=== PATIENT | male | born 1990 | race Caucasian/White ===

== ENCOUNTER 2017-09-24 16:27 | Emergency (ER) | payer BC ==
[~2017-09-24] VITALS: Ht 182.9 cm; Wt 111.8 kg
[~2017-09-24 16:27] MED LIST: IMT100 PO
[2017-09-24 16:35] VITALS: TEMP 36.4; Ht 182.9 cm; Wt 111.8 kg
[2017-09-24] MEDS ORDERED: ACETAMINOPHEN IV 100 ML IV STA (17:54)
[2017-09-24] MEDS ORDERED: SODIUM CHLORIDE 0.9% 1000ML 1,000 ML IV STA (17:54)
[2017-09-24] MEDS ORDERED: ONDANSETRON INJ 2 MG/ML 2 ML VIAL IV STA (17:54)
[2017-09-24] MEDS ORDERED: OPTIRAY 320 IV PRN (18:15)
[2017-09-24] MEDS ORDERED: ACET-1311 PO (18:18)
--- NOTE | 2017-09-24 18:33 | EMERGENCY ROOM VISIT NOTE ---
History First contact with patient: 17:08 Chief Complaint: ILLNESS Stated Complaint: STOMACH PAINS, VOMITING, LOOSE STOOL History of Present Illness The patient is a 27 year old male who presents to the Emergency Room with complaints of epigastric pain, nausea/vomiting, and diarrhea that started this morning. Patient states he had some mild epigastric pain last night when he went to bed, but thought it was just a stomach ache. This morning he had severe epigastric pain, followed by several episodes of vomiting and watery stools. He denies any blood in his stool or vomit. He also reports history of hemorrhoids. He states his abdominal pain is now diffuse in the whole abdomen, crampy and occasionally sharp, constant, 8/10. Patient reports a history of a stomach ulcer approximately 1.5 years ago, he was treated with antibiotics for this, and then developed a C. difficile infection. He states since treatment for all that he has not had any ongoing stomach issues, does not take any daily medications for management. Patient states that he has been able to keep some water down, but it seems to go right through him as diarrhea. He has not had anything to eat today. He denies any headaches, neck pain or stiffness, chest pain, shortness of breath, palpitations, dizziness or syncope, back pain, urinary symptoms, rash. Review of Systems A complete 10 point review of systems was reviewed with the patient with pertinent positives and negatives as per history of present illness. All else were negative. Past Medical/Surgical History Medical Problems: (1) GI bleed (2) History of frequent headaches Family History FHx: hypertension FHx: kidney disease Heart disease Social History Smoking Status: Never Smoker Alcohol Use: none Drug Use: none Marital Status: in relationship Housing Status: lives with family, lives with significant other Current/Historical Medications Scheduled Acetaminophen (Tylenol), 650 MG PO PRN/UD Scheduled PRN Sumatriptan Succinate (Imitrex), 100 MG PO UD PRN for Migraine Allergies Reviewed in chart. Physical Exam Vital Signs Date Time Temp Pulse Resp B/P (MAP) Pulse Ox O2 Delivery O2 Flow Rate FiO2 09/24/17 22:39 84 16 110/78 99 09/24/17 21:48 74 16 103/78 09/24/17 20:29 91 16 120/68 99 Room Air 09/24/17 16:35 36.4 92 18 131/86 97 Room Air Physical Exam CONSTITUTIONAL: No acute distress, but does appear uncomfortable and in pain. Mildly dehydrated. Alert and oriented X 4 with normal affect. HEENT: Normocephalic, atraumatic. Pupils equal, round and reactive to light, EOMI. TMs normal. Pharynx normal. Tacky mucous membranes. NECK: Supple, full active range of motion without discomfort. RESPIRATORY: Clear to auscultation bilaterally with no wheezing, crackles, rhonchi or stridor. Equal expansion bilaterally. CARDIOVASCULAR: Regular rate and rhythm with no murmurs, rubs or gallops. Normal peripheral perfusion. No edema. GASTROINTESTINAL: Diffuse tenderness throughout the abdomen to palpation, no palpable masses, no HSM, no rebound or guarding. Soft, nondistended, obese. Hyperactive bowel sounds present in all quadrants. MUSCULOSKELETAL: Full range of motion of all joints without discomfort. INTEGUMENTARY: No rash or other significant dermatologic conditions noted. NEUROLOGIC: Cranial nerves II-XII grossly intact. No focal neurologic deficits noted. Medical Decision & Procedures ER Provider Diagnostic Interpretation: ABD/PELVIS IV CONTRAST ONLY CLINICAL HISTORY: 27 years-old Male presenting with eval SBO, colitis, diverticulitis, appe. TECHNIQUE: Multidetector CT of the abdomen and pelvis was performed after the administration of intravenous contrast. IV contrast: 116 mL of Optiray 320. A dose lowering technique was used consistent with the principles of ALARA (as low as reasonably achievable). COMPARISON: 03/28/2016. CT DOSE (mGy.cm): The estimated cumulative dose is 997.52 mGy.cm. FINDINGS: [employer] topogram: Unremarkable. Lung bases: Minimal dependent changes likely atelectasis. Normal heart size. No pericardial or pleural effusion. Bilateral gynecomastia. Liver: Congenital hypoplasia of the medial segments of the left hepatic lobe. No focal lesion. Patent hepatic vasculature. Biliary: No intrahepatic or extrahepatic biliary ductal dilatation. Normal gallbladder. Pancreas: Normal. Spleen: Normal. Adrenal glands: Normal. Kidneys and ureters: Normal. No hydronephrosis. Bladder: Normal. Pelvic organs: Prostate and seminal vesicles normal. Bowel: Normal appendix. No bowel obstruction. Peritoneal cavity: No free fluid or intraperitoneal gas. Mild infiltration of the small bowel mesentery with associated prominent subcentimeter lymph nodes, suggesting mesenteric panniculitis. This appearance is not significantly changed since the prior exam. Lymph nodes: Prominent mesenteric lymph nodes associated with mild mesenteric infiltration. No pathologically enlarged lymph nodes by CT size criteria. Vasculature: Aorta and IVC patent and normal in caliber. Abdominal wall: Normal. Musculoskeletal: Normal. IMPRESSION: 1. No acute intra-abdominal pathology. Laboratory Results 09/24/17 18:30 Red Blood Count 5.32, Mean Corpuscular Volume 85.5, Mean Corpuscular Hemoglobin 29.3, Mean Corpuscular Hemoglobin Concent 34.3, Mean Platelet Volume 11.1, Neutrophils (%) (Auto) 76.7, Lymphocytes (%) (Auto) 15.1, Monocytes (%) (Auto) 6.4, Eosinophils (%) (Auto) 1.3, Basophils (%) (Auto) 0.2, Neutrophils # (Auto) 10.03, Lymphocytes # (Auto) 1.98, Monocytes # (Auto) 0.83, Eosinophils # (Auto) 0.17, Basophils # (Auto) 0.02 09/24/17 18:30 Test 09/24/17 18:30 09/24/17 20:30 White Blood Count 13.07 K/uL (4.8-10.8) Red Blood Count 5.32 M/uL (4.7-6.1) Hemoglobin 15.6 g/dL (14.0-18.0) Hematocrit 45.5 % (42-52) Mean Corpuscular Volume 85.5 fL (80-100) Mean Corpuscular Hemoglobin 29.3 pg (25-34) Mean Corpuscular Hemoglobin Concent 34.3 g/dl (32-36) Platelet Count 268 K/uL (130-400) Mean Platelet Volume 11.1 fL (7.4-10.4) Neutrophils (%) (Auto) 76.7 % Lymphocytes (%) (Auto) 15.1 % Monocytes (%) (Auto) 6.4 % Eosinophils (%) (Auto) 1.3 % Basophils (%) (Auto) 0.2 % Neutrophils # (Auto) 10.03 K/uL (1.4-6.5) Lymphocytes # (Auto) 1.98 K/uL (1.2-3.4) Monocytes # (Auto) 0.83 K/uL (0.11-0.59) Eosinophils # (Auto) 0.17 K/uL (0-0.5) Basophils # (Auto) 0.02 K/uL (0-0.2) RDW Standard Deviation 41.4 fL (36.4-46.3) RDW Coefficient of Variation 13.4 % (11.5-14.5) Immature Granulocyte % (Auto) 0.3 % Immature Granulocyte # (Auto) 0.04 K/uL (0.00-0.02) Anion Gap 8.0 mmol/L (3-11) Est Creatinine Clear Calc Drug Dose 126.8 ml/min Estimated GFR () 102.3 Estimated GFR (Non- 88.3 BUN/Creatinine Ratio 9.0 (10-20) Calcium Level 9.0 mg/dl (8.5-10.1) Total Bilirubin 1.3 mg/dl (0.2-1) Direct Bilirubin 0.2 mg/dl (0-0.2) Aspartate Amino Transf (AST/SGOT) 21 U/L (15-37) Alanine Aminotransferase (ALT/SGPT) 39 U/L (12-78) Alkaline Phosphatase 98 U/L (45-117) Total Protein 8.1 gm/dl (6.4-8.2) Albumin 4.4 gm/dl (3.4-5.0) Lipase 124 U/L (73-393) Urine Color YELLOW Urine Appearance CLEAR (CLEAR) Urine pH 5.5 (4.5-7.5) Urine Specific [place] > 1.045 (1.000-1.030) Urine Protein NEG (NEG) Urine Glucose (UA) NEG (NEG) Urine Ketones NEG (NEG) Urine Occult Blood NEG (NEG) Urine Nitrite NEG (NEG) Urine Bilirubin NEG (NEG) Urine Urobilinogen NEG (NEG) Urine Leukocyte Esterase NEG (NEG) Date/Time Source Procedure Growth Status 09/24/17 20:15 Stool C.difficile Toxin B Gene (PCR) - Final No C. difficile toxin B gene detected Complete Medications Administered Medications (Trade) Dose Ordered Sig/Blaze Route Start Time Stop Time Status Last Admin Dose Admin Sodium Chloride 1,000 ml @ 999 mls/hr Q1H1M STAT IV 09/24/17 17:54 09/24/17 18:54 DC 09/24/17 19:10 999 MLS/HR Ondansetron HCl (Zofran Inj) 4 mg NOW STAT IV 09/24/17 17:54 09/24/17 17:59 DC 09/24/17 19:10 4 MG Acetaminophen 100 ml @ 400 mls/hr NOW STAT IV 09/24/17 17:54 09/24/17 18:08 DC 09/24/17 19:10 400 MLS/HR Ondansetron HCl (ZOFRAN ODT 4MG Home Pack) 1 homepack UD ONCE PO 09/24/17 22:30 09/24/17 22:31 DC 09/24/17 22:37 1 [email or web address] Medical Decision CC: Patient presenting with complaint of abdominal pain, nausea/vomiting, diarrhea Interpretation of Labs: Leukocytosis, no anemia, no significant electrolyte abnormalities, normal renal function, normal liver enzymes and lipase. UA suggestive of dehydration, negative for infection. C. difficile toxin negative. Differential Diagnosis: Includes, but not limited to gastroenteritis, gastritis , peptic ulcer disease, food poisoning, small bowel obstruction, bowel perforation, colitis, diverticulitis, dehydration, electrolyte abnormality, among others. Medication Reconciliation: I attest that I have personally reviewed the patient' s current medication list. Vital signs review: I reviewed the patient's vital signs and interpret them as follows: T: Afebrile; BP: Normotensive; HR: Within normal limits; RR: Within normal limits; Pulse Ox: Within normal limits on room air. Blood pressure screening: The patient was found to have normal blood pressure on screening and does not require follow-up for repeat blood pressure check. Summary: Patient was evaluated at bedside, history and physical exam performed. Patient is alert and oriented, in no acute distress, but does appear uncomfortable, resting calmly in the stretcher. The abdomen is tender throughout, no rebound tenderness or guarding noted. Hyperactive bowel sounds. Patient does appear slightly pale and mildly dehydrated. Patient was offered something for his pain, he requested IV Tylenol, which was ordered. Orders were placed at bedside for labs, UA, IV fluids for hydration, IV Zofran for nausea, stool studies for C. difficile, Hemoccult testing, and fecal leukocytes, and CT abdomen/pelvis with IV contrast to evaluate for intra- abdominal pathology. Patient discussed with Dr. Skelton, who agrees with my assessment and plan. Labs reviewed as above, notable for some leukocytosis, but otherwise unremarkable. He is not anemic. C. difficile toxin is negative. CT imaging unremarkable with no acute findings. I suspect the patient's symptoms are most likely consistent with a viral gastroenteritis, given mild leukocytosis and negative imaging. Patient reassessed multiple times throughout ED stay, he reports he is feeling much better after fluids, Zofran, and Tylenol. He is able to tolerate PO fluids well without worsening symptoms. Patient was updated on all results and plan for discharge home, and he was encouraged to follow closely with his PCP. He was also educated on return precautions should his symptoms persist or worsen , he verbalized understanding. Patient was provided with a take home pack of Zofran ODT for continued management of his nausea/vomiting. Patient was discharged home in stable condition and ambulatory. Impression Primary Impression: Acute gastroenteritis Departure Information Dispostion Home / Self-Care Condition GOOD Referrals Jl Pond M.D.([facility]) (PCP) Patient Instructions ED Diet [place], ED Food Poison Or Gastroenteritis, [facility] [place] Additional Instructions You have been treated in the Emergency Department your Abdominal Pain. Laboratory results and imaging studies have ruled out any emergent causes for your abdominal pain which would warrant admission or surgery. You have been prescribed Zofran to be used for any nausea or vomiting. Take one pill every 6-8 hours as needed for severe nausea or vomiting. It is ESSENTIAL that you maintain adequate hydration with oral fluids! Some suggestions include: - Water is the IDEAL replacement for lost fluids. You should initially sip at the water to help facilitate increased intestinal absorption rate and to decrease the possibility of nausea/vomiting. - Carbohydrate/Electrolyte-Containing Drinks (i.e. Gatorade, Powerade, Pedialyte). All of these are good choices, but it is important to remember that all of these drinks contain a high concentration of sugar. - Popsicles, ice chips, and fruit juices are all other options. - My FAVORITE dehydration remedy is to mix a 1:1 solution of bottled Gatorade with bottled water. This dilution allows for a palatable flavor with added benefit of a reduction in the amount of sugar consumption. For pain control, you can use the following [id number] medicines (if >12 yo): - Regular strength (325mg/tab) Tylenol (acetaminophen) 2 tabs every 4-6 hours as needed. Do not exceed 10 tablets in a 24 hour period. Avoid taking more than 3000 mg of Tylenol per day. This includes any other sources of acetaminophen you may take on a regular basis. - You should avoid taking any NSAIDs, such as aspirin, ibuprofen, Advil, Aleve, as these medications may irritate your stomach and make your symptoms worse. Please follow-up with your primary care provider in the next 1-2 days for recheck of your symptoms. Return to the emergency department if your symptoms persist or worsen, including severe worsening abdominal pain, vomiting blood or bile, worsening nausea/vomiting, bright red blood in your stool or urine, fevers/chills, or any other concerns. Work Instructions Return To Work: 1 day
[2017-09-24 18:50] LABS: BASO % 0.2 %; BASO ABS # 0.02 K/uL (0-0.2); COMPLETE YES; EOS % 1.3 %; HEMATOCRIT 45.5 % (42-52); IG% 0.3 %; LYMPH % 15.1 %; LYMPH ABS # 1.98 K/uL (1.2-3.4); MEAN CELL VOLUME 85.5 fL (80-100); MEAN CORPUSCULAR HEMOGLOBIN 29.3 pg (25-34); MEAN CORPUSCULAR HGB CONC 34.3 g/dl (32-36); MEAN PLATELET VOLUME 11.1 fL (7.4-10.4); MONO % 6.4 %; NEUT % 76.7 %; PLATELET COUNT 268 K/uL (130-400); RED BLOOD COUNT 5.32 M/uL (4.7-6.1); WHITE BLOOD COUNT 13.07 K/uL (4.8-10.8)
[2017-09-24 19:06] LABS: CREATININE 1.14 mg/dl (0.60-1.40); POTASSIUM 3.9 mmol/L (3.5-5.1)
--- NOTE | 2017-09-24 19:59 | DIAGNOSTIC IMAGING REPORT ---
ABD/PELVIS IV CONTRAST ONLY CLINICAL HISTORY: 27 years-old Male presenting with eval SBO, colitis, diverticulitis, appe. TECHNIQUE: Multidetector CT of the abdomen and pelvis was performed after the administration of intravenous contrast. IV contrast: 116 mL of Optiray 320. A dose lowering technique was used consistent with the principles of ALARA (as low as reasonably achievable). COMPARISON: 03/28/2016. CT DOSE (mGy.cm): The estimated cumulative dose is 997.52 mGy.cm. FINDINGS: [employer]ment [employer] topogram: Unremarkable. Lung bases: Minimal dependent changes likely atelectasis. Normal heart size. No pericardial or pleural effusion. Bilateral gynecomastia. Liver: Congenital hypoplasia of the medial segments of the left hepatic lobe. No focal lesion. Patent hepatic vasculature. Biliary: No intrahepatic or extrahepatic biliary ductal dilatation. Normal gallbladder. Pancreas: Normal. Spleen: Normal. Adrenal glands: Normal. Kidneys and ureters: Normal. No hydronephrosis. Bladder: Normal. Pelvic organs: Prostate and seminal vesicles normal. Bowel: Normal appendix. No bowel obstruction. Peritoneal cavity: No free fluid or intraperitoneal gas. Mild infiltration of the small bowel mesentery with associated prominent subcentimeter lymph nodes, suggesting mesenteric panniculitis. This appearance is not significantly changed since the prior exam. Lymph nodes: Prominent mesenteric lymph nodes associated with mild mesenteric infiltration. No pathologically enlarged lymph nodes by CT size criteria. Vasculature: Aorta and IVC patent and normal in caliber. Abdominal wall: Normal. Musculoskeletal: Normal. IMPRESSION: 1. No acute intra-abdominal pathology. Electronically signed by: Yovany Santana M.D. 09/24/2017 7:58 PM Dictated Date/Time: 09/24/2017 7:51 PM
[2017-09-24 20:45] LABS: URINE APPEARANCE CLEAR (CLEAR); URINE BILIRUBIN NEG (NEG); URINE COLOR YELLOW; URINE NITRITE NEG (NEG); URINE PH 5.5 (4.5-7.5); URINE SPECIFIC GRAVITY > 1.045 (1.000-1.030); UROBILINOGEN NEG (NEG); ZZUR CULT IF INDIC CLEAN CATCH NO
[2017-09-24 20:51] LABS: MANUAL MICROSCOPIC REQUIRED? NO; REVIEW REQ? NO
[2017-09-24] MEDS ORDERED: ONDANSETRON HOME PACK 4MG OD TAB PO ONE (22:30)
[2017-09-24 22:39] VITALS: BP 110/78; PULSE 84; O2SAT 99
== END 2017-09-24 22:40 | disposition home or self-care (01) ==
LOC: C.EDB 16:28
DX: K52.9 Noninfective gastroenteritis and colitis, unspecified (principal); Z87.19 Personal history of other diseases of the digestive system; Z82.49 Family history of ischemic heart disease and other diseases of the circulatory system; Z84.1 Family history of disorders of kidney and ureter